=== PATIENT | male | born 1990 | race Caucasian/White ===

== ENCOUNTER 2020-04-01 06:40 | Day surgery (SDC) | payer OTHER ==
[~2020-04-01] VITALS: Ht 198.1 cm; Wt 77.1 kg
[~2020-04-01 06:40] MED LIST: AMPH10TA2 PO; FLUO-126 PO
[2020-04-01] MEDS ORDERED: LIDOCAINE 2%HCL (LOCAL ANESTH.) INJ 20ML MDV ONE (07:16)
[2020-04-01] MEDS ORDERED: IODIXANOL 320MG/ML 100ML BTL IV ONE (07:16)
[2020-04-01] MEDS ORDERED: ANGIOMAX 250 MG VIAL IV ONE (07:53)
[2020-04-01] MEDS ORDERED: HEPARIN SODIUM (PORCINE) 5000 UNITS/ML 1ML VIAL ONE (07:54)
[2020-04-01] MEDS ORDERED: VERAPAMIL 2.5MG/ML INJ 2ML VIAL IV ONE (07:54)
[2020-04-01] MEDS ORDERED: fentaNYL CITRATE 100 MCG/2 ML VL ONE (07:54)
[2020-04-01] MEDS ORDERED: SODIUM CHL 0.9% 0 ML ONE (07:54)
[2020-04-01] MEDS ORDERED: MIDAZOLAM HCL 1MG/1ML-2 ML VIAL ONE ×2 (07:54→08:10)
== END 2020-04-01 10:36 | disposition home or self-care (01) ==
LOC: CATH 06:40
PROVIDERS: ATTEND Internal Medicine
DX: R94.39 Abnormal result of other cardiovascular function study (principal); I25.10 Atherosclerotic heart disease of native coronary artery without angina pectoris; I10 Essential (primary) hypertension; F17.210 Nicotine dependence, cigarettes, uncomplicated; Z20.828 Contact with and (suspected) exposure to other viral communicable diseases; Z79.899 Other long term (current) drug therapy; Z98.890 Other specified postprocedural states
CPT/HCPCS: 93005; 93458; C1769; C1894; J1644; J2250; J3010; Q9967; U0003; 99152